=== PATIENT | female | born 1940 | race Caucasian/White ===

== ENCOUNTER 2017-09-25 10:40 | Day surgery (SDC) | payer MEDICARE, OTHER ==
[~2017-09-25] VITALS: Ht 167.6 cm; Wt 88.8 kg
[~2017-09-25 10:40] MED LIST: ASPI81CH; BIMA.03OPS OD; CHOL10002; DOCU100 PO; GLIP10; HYDACE5 PO; INSR10I SC; METF500 PO; PRAV20; Prinivil10 MG; TRULICITY0.75 MG/0.; VALACYCLOVIR1000 MG PO
[2017-09-25] MEDS ORDERED: TOUJEO SOL300 UNIT/1 (11:32)
== END 2017-09-25 13:14 | disposition home or self-care (01) ==
LOC: ORSCSDS 10:40
PROVIDERS: Internal Medicine Gastroenterology
PROC: 0DBL8ZX Excision of Transverse Colon, Via Natural or Artificial Opening Endoscopic, Diagnostic (ICD-10-PCS; principal; 2017-09-25 11:45)
PROC: 0DBM8ZX Excision of Descending Colon, Via Natural or Artificial Opening Endoscopic, Diagnostic (ICD-10-PCS; principal; 2017-09-25 11:45)
DX: Z12.11 Encounter for screening for malignant neoplasm of colon (principal); D12.3 Benign neoplasm of transverse colon; D12.4 Benign neoplasm of descending colon; K64.8 Other hemorrhoids; K57.30 Diverticulosis of large intestine without perforation or abscess without bleeding; Z86.010 Personal history of colon polyps; Z80.0 Family history of malignant neoplasm of digestive organs; E11.9 Type 2 diabetes mellitus without complications; G47.33 Obstructive sleep apnea (adult) (pediatric); Z79.82 Long term (current) use of aspirin; Z79.4 Long term (current) use of insulin; Z79.899 Other long term (current) drug therapy
CPT/HCPCS: 82947; 88305; J7120

== ENCOUNTER 2021-07-04 11:35 | Day surgery (SDC) | payer MEDICARE, OTHER ==
[~2021-07-04] VITALS: Ht 167.6 cm; Wt 81.9 kg
[~2021-07-04 11:35] MED LIST changes: +ACET500 PO; +ALBU8HFA2 INH; +ASPI81CH PO; +Alphagan P5 ML BOTHEYES; +CLEM1.34 PO; +DORZOLAMIDE 2%10 M3 BOTHEYES; +LUMIGAN2.5 ML BOTHEYES; +MELO7.5 PO; +NOVOLOG100 UNIT/3 SC; +PRAV20 PO; +Prinivil10 MG PO; +TIMO.25OPS BOTHEYES; +TIMO10T BOTHEYES; +TOUJEO MAX300 UNIT/2 SC; +TOUJEO SOL300 UNIT/1; +TRULICITY1.5 MG/0.1 SC; +VITAMIN D310 MC4 PO; +Voltaren100 GM TOP
--- NOTE | 2021-07-04 12:30 | NUR ---
Ambulatory in Day Surgery. Surgical site prepped with 2% Chlorhexidine cloth wipe. History, Chart, Medications and Allergies reviewed before start of procedure. Lungs clear T/O to Auscultation. Patient confirms NPO status and agrees with scheduled surgery. Pre-Op teaching done. Pt verbalizes understanding. Patient reports completing Chlorhexadine shower X2 prior to admission to hospital.
--- NOTE | 2021-07-04 18:44 | NUR ---
SHIFT SUMMARY PT STATUS POST FOR R TOTAL KNEE. AQUACEL DRESSING AND ZHANNA WRAP IN PLACE ON R LEG CDI. PT TRIED TO GET UP TO THE BSC AND WAS FOUND TO STILL BE A LITTLE NUMB FROM THE SPINAL. HOWEVER, PT WAS ABLE TO VOID. PT HAS SOME SENSATION IN HER LEGS BUT NO PAIN AT THIS TIME. VSS. WILL REPORT TO KIM CANTU.
--- NOTE | 2021-07-04 18:59 | NUR ---
SHIFT SUMMARY PT STATUS POST FOR R TOTAL KNEE. PT STILL NUMB FROM SPINAL AND NO C/O PAIN AT THIS TIME. AQUACEL DRESSING WITH ZHANNA WRAP IN PLACE AND CDI. PT HAD AN INSTANCE OF HYPOGLYCEMIA AFTER RETURNING FROM PACU. HER BLOOD GLUCOSE WAS 61. AFTER BEING GIVEN APPLE JUICE, ORANGE JUICE WITH A SUGAR PACKET, AND DINNER HER BLOOD GLUCOSE HAS COME UP TO 188. NO SYMPTOMS OF HYPOGLYCEMIA NOTED AT THE TIME OF EPISODE. VSS. PT IN BED WITH CALL LIGHT IN REACH. WILL REPORT TO KIM CANTU.
[2021-07-05 04:38] LABS: BASOPHILS ABSOLUTE AUTO 0.02 K/mm3 (0.00-0.23); BASOPHILS PERCENT AUTO 0 % (0-2); EOSINOPHILS ABSOLUTE AUTO 0.13 K/mm3 (0.00-0.68); EOSINOPHILS PERCENT AUTO 1 % (0-6); Hematocrit 32.3 % (33.0-51.0); Hemoglobin 10.7 g/dL (11.5-16.0); IMMATURE GRAN ABSOLUTE AUTO 0.04 K/mm3 (0.00-0.10); IMMATURE GRAN PERCENT AUTO 0 % (0-1); LYMPHOCYTES ABSOLUTE AUTO 1.71 K/mm3 (0.84-5.20); LYMPHOCYTES PERCENT AUTO 18 % (21-46); MONOCYTES ABSOLUTE AUTO 1.07 K/mm3 (0.16-1.47); MONOCYTES PERCENT AUTO 11 % (4-13); Mean Corpuscular HGB 31.2 pg (26.0-34.0); Mean Corpuscular HGB Conc 33.1 g/dL (31.5-36.5); Mean Corpuscular Volume 94 fL (80-100); NEUTROPHILS ABSOLUTE AUTO 6.62 K/mm3 (1.96-9.15); NEUTROPHILS PERCENT AUTO 69 % (41-73); Platelet Count 149 K/mm3 (150-400); RDW Coefficient Variation 13.2 % (11.7-14.2); RDW Standard Deviation 45.7 fL (35.1-46.3); Red Blood Cell Count 3.43 M/mm3 (3.80-5.20); White Blood Cell Count 9.59 K/mm3 (4.00-11.30)
[2021-07-05 05:35] LABS: Anion Gap 11 mmol/L (6-16); Blood Urea Nitrogen 25 mg/dL (8-24); Bun/Creatinine Ratio 31.8 (12.0-20.0); CO2, Blood 20 mmol/L (21-32); Chloride, Blood 105 mmol/L (98-108); Creatinine, Blood 0.79 mg/dL (0.40-1.00); Glomerular Filtration Rate >60 (60-); Glucose, Blood 189 mg/dL (70-99); Magnesium, Blood 1.7 mg/dL (1.6-2.4); Potassium, Blood 5.1 mmol/L (3.5-5.5); Sodium, Blood 136 mmol/L (136-145)
--- NOTE | 2021-07-05 07:22 | NUR ---
SHIFT SUMMARY POD 1 R TKA, A/O X4, VSS, TOLERATING PO, AMBULATING, VOIDING, PAIN WELL MANAGED, P/O ABX COMPLETE, NO ACUTE EVENTS THIS SHIFT. CALL LIGHT IN REACH, WILL CTM AND REPORT TO DAY RN.
[2021-07-05] MEDS ORDERED: OXYC5 PO (08:42)
[2021-07-05] MEDS ORDERED: SULTRIDS PO (08:43)
--- NOTE | 2021-07-05 14:16 | NUR ---
DISCHARGE PATIENT DISCHARGED IN STABLE CONDITION, PERIPHERAL IV REMOVED. PATIENT VERBALIZED UNDERSTANDING OF DISCHARGE INSTRUCTIONS ALL BELONGINGS PACKED AND SENT WITH PATIENT. PATIENT TAKEN TO FRONT LOBBY VIA WHEELCHAIR WITH ASSISTANCE FROM KEV
--- NOTE | 2021-07-06 14:32 | NUR ---
07/06/21 1432 Papst,Mychal D VERIFICATION CORRECT IMPLANT INFORMATION
== END 2021-07-05 14:00 | disposition home or self-care (01) ==
LOC: ORSCMMR 11:35 → ORD 13:00 → SURS 16:48 → ORSCMMR 07-05 14:00
PROVIDERS: Orthopaedic Surgery
PROC: 8E0YXBZ Computer Assisted Procedure of Lower Extremity (ICD-10-PCS; principal; 2021-07-04 13:00)
PROC: 0SRC0J9 Replacement of Right Knee Joint with Synthetic Substitute, Cemented, Open Approach (ICD-10-PCS; principal; 2021-07-04 13:00)
DX: M17.11 Unilateral primary osteoarthritis, right knee (principal); Z86.73 Personal history of transient ischemic attack (TIA), and cerebral infarction without residual deficits; E11.9 Type 2 diabetes mellitus without complications; Z79.84 Long term (current) use of oral hypoglycemic drugs; Z79.899 Other long term (current) drug therapy; I10 Essential (primary) hypertension; E78.5 Hyperlipidemia, unspecified; G47.33 Obstructive sleep apnea (adult) (pediatric)
CPT/HCPCS: 36415; 73560-RT; 80048; 82947; 83735; 85025; 94762; 97110; 97116; 97161; 97530; A9270; C1713; C1776; J0171; J0690; J0735; J1815; J1885; J2704; J2795; J3010; J7120

== ENCOUNTER 2022-05-24 11:29 | Day surgery (SDC) | payer MEDICARE, OTHER ==
[~2022-05-24] VITALS: Ht 165.1 cm; Wt 78.3 kg
[~2022-05-24 11:29] MED LIST changes: +OXYC5 PO; +SULTRIDS PO
[2022-05-24] MEDS ORDERED: TRULICITY0.75 MG/01 (12:12)
== END 2022-05-24 15:43 | disposition home or self-care (01) ==
LOC: ORSCSDS 11:29
PROVIDERS: Internal Medicine Gastroenterology
PROC: 0DBH8ZX Excision of Cecum, Via Natural or Artificial Opening Endoscopic, Diagnostic (ICD-10-PCS; principal; 2022-05-24 12:45)
DX: Z12.11 Encounter for screening for malignant neoplasm of colon (principal); Z86.010 Personal history of colon polyps; Z80.0 Family history of malignant neoplasm of digestive organs; G47.33 Obstructive sleep apnea (adult) (pediatric); E11.9 Type 2 diabetes mellitus without complications; D12.0 Benign neoplasm of cecum; K57.50 Diverticulosis of both small and large intestine without perforation or abscess without bleeding; J44.9 Chronic obstructive pulmonary disease, unspecified; I10 Essential (primary) hypertension; E78.5 Hyperlipidemia, unspecified; G47.30 Sleep apnea, unspecified; E66.9 Obesity, unspecified; Z68.33 Body mass index [BMI] 33.0-33.9, adult; Z79.82 Long term (current) use of aspirin; Z79.4 Long term (current) use of insulin; Z79.85 Long-term (current) use of injectable non-insulin antidiabetic drugs; Z79.84 Long term (current) use of oral hypoglycemic drugs; Z79.899 Other long term (current) drug therapy
CPT/HCPCS: 82947; 88305; J2704; J7120

== ENCOUNTER 2023-01-04 10:27 | Emergency (ER) | payer MEDICARE, OTHER ==
[~2023-01-04] VITALS: Ht 165.1 cm; Wt 81.7 kg
[~2023-01-04 10:27] MED LIST changes: +TRULICITY0.75 MG/01
[2023-01-04 10:33] VITALS: BP 156/87
== END 2023-01-04 11:21 | disposition home or self-care (01) ==
LOC: ER 10:27
DX: S51.012A Laceration without foreign body of left elbow, initial encounter (principal); E11.9 Type 2 diabetes mellitus without complications; Z23 Encounter for immunization; Z79.82 Long term (current) use of aspirin; Z79.4 Long term (current) use of insulin; Z79.84 Long term (current) use of oral hypoglycemic drugs; W18.30XA Fall on same level, unspecified, initial encounter
CPT/HCPCS: 90714

== ENCOUNTER → 2023-09-18 | Outpatient (CLI) | payer MEDICARE, OTHER ==
[2023-09-18 17:15] LABS: Adenovirus F 40/41 Not Detected (NOT DETECT); Astrovirus Not Detected (NOT DETECT); Campylobacter Sp Not Detected (NOT DETECT); Cryptosporidium Not Detected (NOT DETECT); Cyclospora Cayetanensis Not Detected (NOT DETECT); E. Coli O157 Not Detected (NOT DETECT); Entamoeba Histolytica Not Detected (NOT DETECT); Enteroaggregative E. coli-EAEC Not Detected (NOT DETECT); Enteropathogenic E. coli-EPEC Not Detected (NOT DETECT); Enterotoxigenic E. coli-ETEC Not Detected (NOT DETECT); Giardia Lamblia Not Detected (NOT DETECT); Norovirus GI/GII Not Detected (NOT DETECT); Plesiomonas Shigelloides Not Detected (NOT DETECT); Rotavirus A Not Detected (NOT DETECT); Salmonella Sp Not Detected (NOT DETECT); Sapovirus Not Detected (NOT DETECT); Shiga Toxin-prod E. coli-STEC Not Detected (NOT DETECT); Shigella/Enteroin E. coli-EIEC Not Detected (NOT DETECT); Vibrio Cholerae Not Detected (NOT DETECT); Vibrio Sp Not Detected (NOT DETECT); Yersinia Enterocolitica Not Detected (NOT DETECT)
[2023-09-19 11:55] LABS: Stool Occult Bld Immuno 1 Positive (NEGATIVE)
== END ==
LOC: LAB SHORT 12:46 → LAB 12:46
PROVIDERS: Family Medicine
DX: R19.7 Diarrhea, unspecified (principal)
CPT/HCPCS: 82274; 87507

== ENCOUNTER → 2023-12-05 | Outpatient (CLI) | payer MEDICARE, OTHER | END | disposition home or self-care (01) | LOC: LAB 13:52 → LAB SHORT 13:52 | DX: R19.7 Diarrhea, unspecified (principal) ==

== ENCOUNTER 2024-01-19 16:57 | Inpatient (IN) | payer MEDICARE, OTHER ==
[~2024-01-19] VITALS: Ht 165.1 cm; Wt 69.5 kg
[~2024-01-19 16:57] MED LIST changes: +ALDACTONE100 MG PO; -CLEM1.34 PO; +FURO40 PO; -PRAV20 PO; +PRAVASTATIN SOD40 MG PO; +[UNRECOGNIZED DRUG - OTHER] PO
[2024-01-19 18:33] LABS: BASOPHILS ABSOLUTE AUTO 0.04 K/mm3 (0.00-0.23); BASOPHILS PERCENT AUTO 1 % (0-2); EOSINOPHILS ABSOLUTE AUTO 0.34 K/mm3 (0.00-0.68); EOSINOPHILS PERCENT AUTO 4 % (0-6); Hematocrit 30.2 % (33.0-51.0); Hemoglobin 10.1 g/dL (11.5-16.0); IMMATURE GRAN ABSOLUTE AUTO 0.03 K/mm3 (0.00-0.10); IMMATURE GRAN PERCENT AUTO 0 % (0-1); LYMPHOCYTES PERCENT AUTO 31 % (21-46); MONOCYTES ABSOLUTE AUTO 0.75 K/mm3 (0.16-1.47); MONOCYTES PERCENT AUTO 9 % (4-13); Mean Corpuscular HGB 32.1 pg (26.0-34.0); Mean Corpuscular HGB Conc 33.4 g/dL (31.5-36.5); Mean Corpuscular Volume 96 fL (80-100); Mean Platelet Volume 11.5 fL (9.1-12.4); NEUTROPHILS ABSOLUTE AUTO 4.34 K/mm3 (1.96-9.15); NEUTROPHILS PERCENT AUTO 54 % (41-73); Platelet Count 116 K/mm3 (150-400); RDW Coefficient Variation 13.9 % (11.7-14.2); RDW Standard Deviation 49.1 fL (35.1-46.3); Red Blood Cell Count 3.15 M/mm3 (3.80-5.20)
[2024-01-19 18:48] LABS: Albumin, Blood 3.1 g/dL (3.4-5.0); Bilirubin, Total 1.2 mg/dL (0.1-1.0); Bun/Creatinine Ratio 23.1 (12.0-20.0); Calcium, Blood 9.4 mg/dL (8.5-10.1); Creatinine, Blood 2.38 mg/dL (0.40-1.00); Globulin, Blood 3.1 g/dL (2.2-4.0); Potassium, Blood 6.4 mmol/L (3.5-5.5); Total Protein, Blood 6.2 g/dL (6.4-8.2)
[2024-01-19] MEDS ORDERED: Calcium Gluconate 10% 100 MG/ML INJ IV ONE (21:05)
[2024-01-19] MEDS ORDERED: NS 1,000 ML IV SCH ×2 (21:05→21:25)
[2024-01-19] MEDS ORDERED: Sodium Zirconium Cyclosilicate 10 GM Packet PO ONE (21:10)
[2024-01-19] MEDS ORDERED: Dextrose 50% 50 ML Syringe IV ONE (21:10)
[2024-01-19] MEDS ORDERED: Insulin Regular 100 Unit/ML 1ML Dose IV ONE ×2 (21:10→21:25)
[2024-01-19] MEDS ORDERED: Sodium Bicarb 8.4% 1 MEQ/ML 50 ML Vial IV ONE ×2 (21:10→21:25)
[2024-01-19] MEDS ORDERED: Ondansetron HCl 2 MG / ML 2ML Vial IV PRN (21:25)
[2024-01-19] MEDS ORDERED: Dextrose 50% 50 ML Vial IV ONE (21:25)
[2024-01-19] MEDS ORDERED: Dextrose 5% 500 ML IV ONE (21:35)
[2024-01-19] MEDS ORDERED: NS 500 ML IV ONE (22:00)
[2024-01-19 22:56] VITALS: BP 109/82
[2024-01-19 23:34] VITALS: BP 123/65
--- NOTE | 2024-01-19 23:52 | NUR ---
ARRIVAL TO PCU: PT ARRIVED TO PCU FROM ER AT APPROX 2215. SHE AMBULATES WITHOUT DIFFICULTY WITH SBA. SHE IS A/OX4 BUT UNABLE TO CONFIRM HOME MEDS. SON TO BRING IN HOME MEDS IN THE MORNING FOR MED REC. SHE USES THE CALL LIGHT APPROPRIATLY AND IS ABLE TO MAKE HER NEEDS KNOWN. SHE IS ON TELE IN NSR, DENIES CHEST PAIN/PRESSURE. SHE IS ON RA WITH SPO2>90%, DENIES SOB. ABD IS NONTENDER, SOFT, BT IN ALL 4QUADS. SHE IS CONT OF VOIDS. HER SKIN IS FREE FROM ANY PRESSURE INJURIES AND RASHES. CALL LIGHT IN REACH, WILL CONTINUE TO MONITOR AND PROVIDE CARE
[2024-01-20] VITALS (18 sets, daily range): BP systolic 10–127; BP diastolic 40–60
[2024-01-20 00:36] LABS: Bun/Creatinine Ratio 26.5 (12.0-20.0); Calcium, Blood 9.5 mg/dL (8.5-10.1); Creatinine, Blood 1.96 mg/dL (0.40-1.00)
[2024-01-20 00:56] LABS: Source, Urine Clean Catch
[2024-01-20 01:20] LABS: Bilirubin, Urine Neg (Neg); Blood, Urine Neg (Neg); Glucose Qualitative, Urine Neg (Neg); Ketones, Urine Neg (Neg); Leukocyte Esterase, Urine 1+ (Neg); Nitrite, Urine Neg (Neg); Protein, Urine Neg (Neg); Urobilinogen, Urine NORM (Normal); pH, Urine 6.5 (5.0-8.0)
[2024-01-20 01:30] LABS: Appearance, Urine Clear (Clear); Color, Urine Yellow (P-Yellow)
[2024-01-20 01:31] LABS: Bacteria Rare /hpf; Red Blood Cells, Urine Not Seen /hpf (0-2); Squamous Epithelial Cells Few /hpf (Few)
--- NOTE | 2024-01-20 04:33 | NUR ---
END OF SHIFT NOTE: NO ACUTE CHANGES T/O SHIFT. SEE PREVIOUS NOTE
[2024-01-20 04:41] LABS: Bun/Creatinine Ratio 27.7 (12.0-20.0); Calcium, Blood 9.4 mg/dL (8.5-10.1); Creatinine, Blood 1.88 mg/dL (0.40-1.00); Potassium, Blood 5.5 mmol/L (3.5-5.5)
--- NOTE | 2024-01-20 07:15 | NUR ---
ASSUMPTION OF CARE: ASSUMED CARE OF PT AT 0700 AFTER REPORT FROM NOC RN. UPON INITAL ASSESSMENT, PT STABLE AND REPSONSIVE TO THIS RN UPON ENTERING ROOM. SHE IS AXO X 4 WITH NO NEURO DEFICITS. CALM AND COOPERATIVE WITH STAFF. SHE HAS NS RUNNING AT 125ML/HR. SHE HAS EQUAL AND CLEAR LUNG SOUNDS. DENIES SOB. O2 96% ON RA, DENIES C/P OR PRESSURE. B/P STABLE. NSR AT 70BPM. DENIES ABDOMINAL PAIN, NO DISTENTION. SHE IS AMBULATORY IN ROOM WITH ASSISTANCE OF HER CANE. POWERGLIDE TO CHAITANYA DRAWS AND FLUSHES WELL. SHE CURRENTLY DENIES ANY NEEDS, CALL LIGHT IN REACH AND ALL VSS.
[2024-01-20] MEDS ORDERED: Insulin Human Lispro 100 Units/ML 3ML Syringe SC SCH ×2 (07:30)
[2024-01-20 07:55] LABS: International Normalized Ratio 1.13
[2024-01-20] MEDS ORDERED: Insulin Glargine-Yfgn 100 Unit/mL 3 ML SYR SC SCH ×3 (09:00)
--- NOTE | 2024-01-20 14:11 | NUR ---
ASSUMED CARE OF PT WHILE PRIMARY RN TO MEAL BREAK. PT SLEEPING IN BED. DENIES NEEDS. CALL LIGHT IN REACH AND VSS.
[2024-01-20] MEDS ORDERED: Lactated Ringer's 1,000 ML IV SCH ×3 (15:30→20:30)
[2024-01-20 16:13] LABS: Bun/Creatinine Ratio 25.4 (12.0-20.0); Calcium, Blood 8.5 mg/dL (8.5-10.1); Creatinine, Blood 2.01 mg/dL (0.40-1.00)
[2024-01-20] MEDS ORDERED: Dextrose 50% 50 ML Vial IV ONE (16:40)
[2024-01-20] MEDS ORDERED: Insulin Regular 100 Unit/ML 1ML Dose IV ONE (16:40)
[2024-01-20] MEDS ORDERED: Insulin Regular 100 UNIT/ML 10ML Vial IV ONE (17:45)
[2024-01-20] MEDS ORDERED: ALDACTONE100 MG PO (17:58)
[2024-01-20] MEDS ORDERED: FUROSEMIDE40 MG PO (17:58)
[2024-01-20] MEDS ORDERED: FOSAMAX70 MG PO (17:58)
[2024-01-20] MEDS ORDERED: ALBU90OI INH (17:59)
[2024-01-20] MEDS ORDERED: Heparin Sodium,Porcine 5,000 UNIT/0.5 ML SDV SC SCH (18:00)
[2024-01-20] MEDS ORDERED: TOUJEO SOL300 UNIT/2 SC (18:02)
[2024-01-20] MEDS ORDERED: Lactated Ringer's 1,000 ML IV ONE (18:15)
--- NOTE | 2024-01-20 18:48 | NUR ---
ASSUME CARE AT 1230 FROM TIMUR CANTU. PT HAS NO REPORTED ISSUES SINCE THIS RN TOOK OVER CARE FOR PT, PT DENIES ANY CHEST PAIN,SOB/, PALPITAITONS, HAS SOME MILD DIZZINESS UPON CHANGING POSITIONS IN BED, WHEN THIS RN CHECKED VITALS AT 3PM SBP WAS LOW 60-70'S MAP ON THE 50'S, HRR SR 70'S, SATS ABOVE 95% ON RA, AFEBRILE. MADE AWARE ORDER TO REPEAT BMP AND 1LR BAG TO RUN AT 200MLS/HR. AFTER AN HOUR NO IMPROVEMENT ON BP'S ORDER RECEIVED TO RUN LR BAG A BOLUS THEN ANOTHER LR BAG AFTER TO RUN AT 125MLS/HR X1 BAG, BMP RESULT CAME BACK WITH POTASSIUM OF 6.0, MD MADE AWARE ORDER RECEIVED FOR D5O SYRINGE FOLLOWED BY 10U OF HUMULIN IV. REPEAT BMP AT 1930. PT ATE DINNER WITH NO ISSUES BP NOW IMPROVED SBP 90-100'S, MAP >60'S. PT IN BED RESTING WITH CALL LIGHTS IN REACH CALLS APPROPRIATELY
[2024-01-20 20:21] LABS: Calcium, Blood 8.8 mg/dL (8.5-10.1); Creatinine, Blood 1.74 mg/dL (0.40-1.00); Potassium, Blood 5.2 mmol/L (3.5-5.5)
[2024-01-21] VITALS (9 sets, daily range): BP systolic 98–130; BP diastolic 46–108
[2024-01-21 04:18] LABS: Bun/Creatinine Ratio 28.3 (12.0-20.0); Calcium, Blood 8.5 mg/dL (8.5-10.1); Creatinine, Blood 1.59 mg/dL (0.40-1.00); Potassium, Blood 5.2 mmol/L (3.5-5.5)
--- NOTE | 2024-01-21 06:31 | NUR ---
SHIFT SUMMARY PATIENT ALERT AND ORIENTED x4, PLEASANT, COOPERATIVE WITH CARES, CALL LIGHT APPROPRIATE. HYPOTENSION NOTED, MAPS > 60, ASYMPTOMATIC. OTHERWISE, HEMODYNAMICALLY STABLE. PATIENT ABLE TO AMBULATE TO RESTROOM WITH CANE WHICH SHE USES AT BASELINE, NURSE SBA FOR SAFETY AND FALL PREVENTION. PATIENT ON RA, SPO2 > 90%, DENIES DYSPNEA, BREATHING UNLABORED, EVEN CHEST RISE AND FALL WHILE RESTING OVERNIGHT. HOME CPAP WORN OVERNIGHT. NO ACUTE EVENTS OVERNIGHT.
[2024-01-21] MEDS ORDERED: Insulin Glargine-Yfgn 100 Unit/mL 3 ML SYR SC SCH (09:00)
--- NOTE | 2024-01-21 10:43 | NUR ---
AM NOTES; NO ACUTE CHANGE THIS MORNING, BP HAS IMPROVED STILL IN THE SOFT SIDE. 90-110'S MAP >60'S, CBG WAS 59 THIS MORNING WAS RECHECKED AN HOUR AFTER EATING BREAKFAST CBG WAS UP TO 158. PT DENIES DIZZINESS THIS MORNING. PT HAS BEEN AMBULATING TO THE BATHROOM SBA. PT NOW CURRENTLY WORKING WITH PHYSICAL THERAPIST. NO ISSUES WITH BREAKFATS AND MEDS THIS MORNING. PT DENIES CHEST/SOB/PALPITATIONS. CALLS APPROPRIATELY. PLEASANT AND COOPERATIVE WITH CARES. WILL CONTINUE TO MONITOR
--- NOTE | 2024-01-21 12:50 | NUR ---
THIS RN ASSUMED CARE OF PT AT THIS TIME.
[2024-01-21 14:38] LABS: Creatinine, Blood 1.45 mg/dL (0.40-1.00); Potassium, Blood 5.9 mmol/L (3.5-5.5)
[2024-01-21] MEDS ORDERED: Albuterol HFA200 ACT/6.7 GM INH INH PRN (15:35)
[2024-01-21] MEDS ORDERED: Lactated Ringer's 1,000 ML IV SCH (15:50)
[2024-01-21] MEDS ORDERED: Insulin Regular 100 UNIT/ML 10ML Vial IV ONE (16:00)
--- NOTE | 2024-01-21 16:33 | NUR ---
TRANSFER TO MEDICAL: REPORT TO TANYA CANTU. PT WHEELED TO ROOM 336 BY STAFF. VSS. ALL PERSONAL BELONGINGS GATHERED AND TRANSFERRED WITH PATIENT.
--- NOTE | 2024-01-21 16:54 | NUR ---
TRANSFER TO ROOM 336 PT ORIENTED TO ROOM. CALL LIGHT IN REACH. WATER PROVIDED. 2 RN SKIN CHECK COMPLETED WITH HARVINDER James RN. PT DENIES PAIN. BREATHING EASY & UNLABORED. NO CHANGES IN ASSESSMENT FROM PRIOR ASSESSMENT. LR STARTED RUNNING 150 ML/HR. BLOOD SUGAR CHECKED & HEPARIN/INSULIN GIVEN. PT DENIES OTHER NEEDS AT THIS TIME. VS REVIEWED. CALL LIGHT IN REACH.
[2024-01-21] MEDS ORDERED: Brimonidine Tartrate 0.2% Opth 5 ml BOTHEYES SCH (21:00)
[2024-01-21] MEDS ORDERED: Timolol 0.25% Opth Soln 5 ml BOTHEYES SCH (21:00)
[2024-01-21] MEDS ORDERED: Dorzolamide 2% Opth Soln BOTHEYES SCH (21:00)
[2024-01-21] MEDS ORDERED: NS 250 ML IV PRN (23:35)
[2024-01-22 03:06] VITALS: BP 100/45
--- NOTE | 2024-01-22 03:18 | NUR ---
SHIFT SUMMARY PT. DENIES PAIN, SOB, ANY DISCOMFORT ON THIS SHIFT. PT. WEARING CPAP DURING THE NIGHT, 02 100%. TELE: SINUS@70. NO ACUTE DISTRESS/EVENTS NOTED/REPORTED DURING THIS SHIFT. BED AT LOWEST POSITION, CALL LIGHT IN REACH. WILL HANDOFF TO THE INCOMING SHIFT NURSE.
[2024-01-22 06:49] LABS: Bun/Creatinine Ratio 26.8 (12.0-20.0); Calcium, Blood 8.6 mg/dL (8.5-10.1); Creatinine, Blood 1.42 mg/dL (0.40-1.00); Potassium, Blood 5.6 mmol/L (3.5-5.5)
[2024-01-22 07:10] VITALS: BP 105/77
[2024-01-22] MEDS ORDERED: Lisinopril 10 MG Tab PO SCH (09:00)
[2024-01-22 15:13] VITALS: BP 104/41
--- NOTE | 2024-01-22 15:29 | NUR ---
SHIFT SUMMARY PT AWAKE DURING SHIFT REPORT, SITTING UP IN BED WATCHING TV. PT IS VERY PLEASANT AND CO-OP WITH CARE. PT ADMITTED FOR ACUTE KIDNEY FAILURE; IMPROVING SLOWLY. UP TO SHOWER WITH O/T TODAY. DR HUSTON IN TO SEE PT THIS AM. PT'S SON IN TO VISIT LATER. PT REPORTING THAT SHE LIVES WITH HER SON WHO ASSISTS HER AT HOME. NO C/O. DENIED FURTHER NEEDS. CALL LT IN REACH.
[2024-01-22 17:07] LABS: Bun/Creatinine Ratio 24.2 (12.0-20.0); Calcium, Blood 8.4 mg/dL (8.5-10.1); Creatinine, Blood 1.53 mg/dL (0.40-1.00); Potassium, Blood 5.8 mmol/L (3.5-5.5)
[2024-01-22 20:13] VITALS: BP 116/58
[2024-01-23 04:03] VITALS: BP 126/53
--- NOTE | 2024-01-23 04:53 | NUR ---
SHIFT SUMMARY NO ACUTE EVENTS DURING THIS SHIFT. PT. DENIES PAIN OR DISCOMFORT, SOB AND CHESTPAIN. HS B, TELE: SINUS@64. PT. IS AWAITING TO D/C TODAY. PT. USES HER OWN CPAP DURING THE NIGHT. BED AT THE LOWEST POSITION, CALL LIGHT IN REACH. WILL HAND OFF TO THE INCOMING SHIFT NURSE.
[2024-01-23 06:53] LABS: Bun/Creatinine Ratio 29.7 (12.0-20.0); Calcium, Blood 8.7 mg/dL (8.5-10.1); Creatinine, Blood 1.18 mg/dL (0.40-1.00); Potassium, Blood 5.3 mmol/L (3.5-5.5)
[2024-01-23 07:37] VITALS: BP 94/56
[2024-01-23 12:52] LABS: Bun/Creatinine Ratio 29.2 (12.0-20.0); Calcium, Blood 8.7 mg/dL (8.5-10.1); Creatinine, Blood 1.13 mg/dL (0.40-1.00); Potassium, Blood 5.7 mmol/L (3.5-5.5)
[2024-01-23] MEDS ORDERED: Furosemide 40 MG Tab PO ONE (13:15)
[2024-01-23 13:29] VITALS: BP 98/51
[2024-01-23 14:55] VITALS: BP 117/59
[2024-01-23] MEDS ORDERED: Sodium Zirconium Cyclosilicate 10 GM Packet PO SCH (16:00)
--- NOTE | 2024-01-23 18:44 | NUR ---
SHIFT SUMMARY PATIENT AOX4 UP AD MADDIE TO BATHROOM. SHE HAS NO ACUTE EVENTS DURING SHIFT. PATIENT ASYMPTOMATIC DESPITE HIGH POTASSIUM TODAY. BED IN LOW POSITIN, CALL LIGHT IN REACH. SHE IS ABLE TO MAKE NEEDS KNOWN.
[2024-01-23 19:13] VITALS: BP 107/51
--- NOTE | 2024-01-24 04:07 | NUR ---
SHIFT SUMMARY PT WAS A/O X4 ON ASSESSMENT. PT STATES THAT SHE FEEL FINE AND IS ONLY HERE D/T LAB VALUES. NO NEW COMPLAINTS, NO CHANGES TO CONDITION. PT RESTING IN BED AT LOW POSITION WITH CALL LIGHT IN REACH.
[2024-01-24 05:18] VITALS: BP 103/60
[2024-01-24 06:17] LABS: Bun/Creatinine Ratio 28.6 (12.0-20.0); Calcium, Blood 8.6 mg/dL (8.5-10.1); Creatinine, Blood 1.12 mg/dL (0.40-1.00); Potassium, Blood 4.7 mmol/L (3.5-5.5)
[2024-01-24 07:40] VITALS: BP 109/64
== END 2024-01-24 12:40 | disposition home or self-care (01) | DRG 684 ==
LOC: ER 16:57 → PCU 21:23 → ER 22:19 → PCU 22:25 → MEDS 01-21 16:39 → ENPENDDIS 01-23 11:09 → MEDS 01-24 12:40
PROVIDERS: Family Medicine; Hospitalist; Nurse Practitioner Acute Care; Student in an Organized Health Care Education/Training Program; ADMIT Internal Medicine
PROC: 5A09357 Assistance with Respiratory Ventilation, Less than 24 Consecutive Hours, Continuous Positive Airway Pressure (ICD-10-PCS; principal; 2024-01-19)
DX: N17.9 Acute kidney failure, unspecified (principal); E87.5 Hyperkalemia; E78.5 Hyperlipidemia, unspecified; N18.9 Chronic kidney disease, unspecified; E86.9 Volume depletion, unspecified; E11.22 Type 2 diabetes mellitus with diabetic chronic kidney disease; I12.9 Hypertensive chronic kidney disease with stage 1 through stage 4 chronic kidney disease, or unspecified chronic kidney disease; K74.60 Unspecified cirrhosis of liver; K75.81 Nonalcoholic steatohepatitis (NASH); Z79.899 Other long term (current) drug therapy; Z79.84 Long term (current) use of oral hypoglycemic drugs; Z79.82 Long term (current) use of aspirin; Z79.4 Long term (current) use of insulin; Z98.51 Tubal ligation status; Z98.890 Other specified postprocedural states
CPT/HCPCS: 80048; 80053; 81001; 82947; 84132; 85025; 85610; 93005; 93010; 94760; 94762; 97116; 97162; 97165; 99285-25; A9270; J0612; J1644; J1815; J7030; J7040; J7060; J7120; J7799

== ENCOUNTER → 2024-04-05 | Outpatient (CLI) | payer MEDICARE, OTHER ==
[~2024-04-05] MED LIST changes: +ALBU90OI INH; +FOSAMAX70 MG PO; +FUROSEMIDE40 MG PO; +TOUJEO SOL300 UNIT/2 SC
[2024-04-05 14:23] LABS: Protein, Urine Quantitative <5.0 mg/dL (0.0-11.9)
== END ==
LOC: LAB 11:20 → LAB SHORT 11:20
PROVIDERS: Internal Medicine Nephrology
DX: N18.30 Chronic kidney disease, stage 3 unspecified (principal); D63.1 Anemia in chronic kidney disease; R76.9 Abnormal immunological finding in serum, unspecified; R94.5 Abnormal results of liver function studies; R94.6 Abnormal results of thyroid function studies; D51.8 Other vitamin B12 deficiency anemias; D52.8 Other folate deficiency anemias; D50.9 Iron deficiency anemia, unspecified; E11.21 Type 2 diabetes mellitus with diabetic nephropathy; N25.81 Secondary hyperparathyroidism of renal origin; E55.9 Vitamin D deficiency, unspecified; E78.00 Pure hypercholesterolemia, unspecified
CPT/HCPCS: 81050; 82043; 82570; 84156

== ENCOUNTER 2024-05-16 09:19 | Inpatient (IN) | payer MEDICARE, OTHER ==
[~2024-05-16] VITALS: Ht 165.1 cm; Wt 79.7 kg
[2024-05-16] VITALS (18 sets, daily range): BP systolic 76–105; BP diastolic 36–62
[2024-05-16] MEDS ORDERED: CefTRIAXone Sodium 1,000 MG in NS 50 ML IV ONE (09:45)
[2024-05-16] MEDS ORDERED: Pantoprazole Sodium 40 MG in NS 50 ML IV SCH (09:45)
[2024-05-16] MEDS ORDERED: Octreotide Acetate 500 MCG in NS 250 ML IV SCH (09:45)
[2024-05-16] MEDS ORDERED: Pantoprazole Sodium 40 MG Injection IV ONE (09:45)
[2024-05-16] MEDS ORDERED: Octreotide Acetate 50 MCG in NS 50 ML IV ONE (09:45)
[2024-05-16 09:50] LABS: BASOPHILS ABSOLUTE AUTO 0.08 K/mm3 (0.00-0.23); BASOPHILS PERCENT AUTO 0 % (0-2); EOSINOPHILS ABSOLUTE AUTO 0.02 K/mm3 (0.00-0.68); EOSINOPHILS PERCENT AUTO 0 % (0-6); Hematocrit 37.4 % (33.0-51.0); Hemoglobin 12.8 g/dL (11.5-16.0); IMMATURE GRAN ABSOLUTE AUTO 0.25 K/mm3 (0.00-0.10); IMMATURE GRAN PERCENT AUTO 1 % (0-1); LYMPHOCYTES ABSOLUTE AUTO 2.89 K/mm3 (0.84-5.20); LYMPHOCYTES PERCENT AUTO 11 % (21-46); MONOCYTES ABSOLUTE AUTO 2.33 K/mm3 (0.16-1.47); MONOCYTES PERCENT AUTO 9 % (4-13); Mean Corpuscular HGB 30.2 pg (26.0-34.0); Mean Corpuscular HGB Conc 34.2 g/dL (31.5-36.5); Mean Corpuscular Volume 88 fL (80-100); Mean Platelet Volume 10.5 fL (9.1-12.4); NEUTROPHILS ABSOLUTE AUTO 20.65 K/mm3 (1.96-9.15); NEUTROPHILS PERCENT AUTO 79 % (41-73); Platelet Count 189 K/mm3 (150-400); RDW Coefficient Variation 18.3 % (11.7-14.2); RDW Standard Deviation 58.4 fL (35.1-46.3); Red Blood Cell Count 4.24 M/mm3 (3.80-5.20); White Blood Cell Count 26.22 K/mm3 (4.00-11.30)
[2024-05-16 09:56] LABS: Calcium, Ionized (POC) 1.09 mmol/L (1.10-1.46); Chloride (POC) 102 mmol/L (98-108); Glucose (ISTAT POC) 159 mg/dL (70-99); Hemoglobin (POC) 12.6 g/dL (12.0-16.0); Potassium (POC) 3.4 mmol/L (3.5-5.5); Sodium (POC) 135 mmol/L (135-148); Total CO2 (POC) 16 mmol/L (21-32)
[2024-05-16 10:04] LABS: Albumin/Globulin Ratio 0.6 (0.8-1.8); Bilirubin, Total 3.5 mg/dL (0.1-1.0); Bun/Creatinine Ratio 33.1 (12.0-20.0); Calcium, Blood 8.1 mg/dL (8.5-10.1); Creatinine, Blood 1.75 mg/dL (0.40-1.00); Globulin, Blood 3.4 g/dL (2.2-4.0); Magnesium, Blood 1.8 mg/dL (1.6-2.4); Potassium, Blood 3.6 mmol/L (3.5-5.5); Total Protein, Blood 5.4 g/dL (6.4-8.2)
[2024-05-16 10:12] LABS: International Normalized Ratio 1.41; Prothrombin Time Results 14.7 Sec (9.7-11.5)
[2024-05-16] MEDS ORDERED: NS 1,000 ML IV SCH ×5 (10:50→19:45)
[2024-05-16] MEDS ORDERED: FLU VACC TS2024-25(6MOS UP)/PF 45 MCG/0.5 ML SYRINGE IM ONE (11:00)
[2024-05-16 15:08] LABS: Hematocrit 32.4 % (33.0-51.0); Hemoglobin 10.8 g/dL (11.5-16.0)
[2024-05-16] MEDS ORDERED: BUME2 PO (17:18)
[2024-05-16] MEDS ORDERED: POTCIT10 PO (17:21)
--- NOTE | 2024-05-16 17:29 | NUR ---
END OF SHIFT SUMMARY: PT A&OX4 AND ACTIVE IN HER CARE. SATTING >92% ON ROOM AIR, ON TELE SHOWING SINUS WITH RATE IN 80'S. NO EPISODES OF BLOODY EMESIS SINCE ARRIVAL. DENIED SOB, SOFT BLOOD PRESSURES. TO BEDSIDE AND AWAITING AN OPEN SLOT FOR A SCOPE TONIGHT AROUND 18:00. A PARACENTESIS IS SCHEDULED FOR TOMORROW MORNING AND PATIENT IS TO BE NPO FOR BREAKFAST. ADDRESSED TO ABOUT A SOFT BLOOD PRESSURE CURRENTLY AT 90'S SBP AND MAP MAINTAING >65. STATED IF BLOOD PRESSURE IS MAINTING <80 SBP TO CONSIDER TRANSFERRING TO ICU FOR PRESSORS. LR RUNNING AT 150MLS/HR. PROTONIX AND SANDOSTATIN DRIPS RUNNING WELL. POWERGLIDE WAS PLACED IN THE RIGHT UPPER ARM. POTASSIUM WAS ADDRESSED AND WANTS LABS IN AM AND HEMOGLOBIN IS ORDERED Q4 TO TREND. WILL REPORT TO ONCOMING ENGINEERING SURVEYOR RN.
[2024-05-16] MEDS ORDERED: Insulin Regular 100 UNIT/ML 10ML Vial SC SCH (18:00)
[2024-05-16] MEDS ORDERED: Lactated Ringer's 1,000 ML IV SCH (18:20)
--- NOTE | 2024-05-16 18:50 | NUR ---
FLUSHED RAC IV SITE WITH 10NS/PATENT.
--- NOTE | 2024-05-16 19:24 | NUR ---
05/16/241923 Jose Mckinley History, Chart, Medications and Allergies reviewed before start of procedure. MONITOR INTACT WITH CONTINUOUS PULSE OXIMETRY, CONTINUOUS END TITAL CO2, AND INTERMITTENT BLOOD PRESSURE.3-LEAD EKG REVIEWED WITH PHYSICIAN PRIOR TO START OF PROCEDURE.O2 VIA POM INTACT THROUGHOUT SEDATION/PROCEDURE.See Anesthesia record.
[2024-05-16] MEDS ORDERED: propofoL 60 ML IV ONE (19:25)
[2024-05-16] MEDS ORDERED: Metoclopramide HCl 5MG / ML 2ML Vial IV ONE (19:55)
[2024-05-16] MEDS ORDERED: Sugammadex Sodium 200 MG/2ML SDV (100 MG/ML) ONE (20:18)
[2024-05-16 21:01] LABS: Hemoglobin 10.2 g/dL (11.5-16.0)
[2024-05-16] MEDS ORDERED: Sodium Chloride 0.45% 1,000 ML IV SCH (21:45)
[2024-05-16] MEDS ORDERED: SuccINYLCHOLINE Chloride 100 MG/5 ML 5MLSYR IV ONE (22:06)
[2024-05-16] MEDS ORDERED: Rocuronium Bromide 10 MG/ML 5ML Injection IV ONE (22:06)
[2024-05-16] MEDS ORDERED: Phenylephrine HCl 100 MCG/ML-NS 10MLSYR (1MG/10ML) IV ONE (22:06)
[2024-05-16] MEDS ORDERED: ePHEDrine Sulfate 50 MG/ML 1ML Injection XX ONE (22:06)
[2024-05-17] VITALS (16 sets, daily range): BP systolic 79–128; BP diastolic 44–83
[2024-05-17 04:49] LABS: Hematocrit 27.1 % (33.0-51.0); Hemoglobin 9.2 g/dL (11.5-16.0); Mean Corpuscular HGB 30.8 pg (26.0-34.0); Mean Corpuscular HGB Conc 33.9 g/dL (31.5-36.5); Mean Corpuscular Volume 91 fL (80-100); Mean Platelet Volume 10.3 fL (9.1-12.4); Platelet Count 128 K/mm3 (150-400); RDW Coefficient Variation 18.6 % (11.7-14.2); RDW Standard Deviation 60.1 fL (35.1-46.3); Red Blood Cell Count 2.99 M/mm3 (3.80-5.20); White Blood Cell Count 14.74 K/mm3 (4.00-11.30)
[2024-05-17 05:09] LABS: Bun/Creatinine Ratio 31.9 (12.0-20.0); Calcium, Blood 7.1 mg/dL (8.5-10.1); Creatinine, Blood 1.91 mg/dL (0.40-1.00); Potassium, Blood 4.5 mmol/L (3.5-5.5)
--- NOTE | 2024-05-17 06:11 | NUR ---
PT RETURNED AT BEGINNING OF SHIFT FROM EGD WHERE 6 VARICES WERE BANDED. PT ON POST-ANESTHIA VITAL SIGN MONITORING. PT DID HAVE SOFT BP WITH MAPS GREATER THAN 60. NO C/O CP/SOB/LIGHTHEADEDNESS/DIZZINESS. HEART RATE REMAINED WNL, SKIN PINK,WARM,DRY WITH GOOD CAP REFILL. PT REMAINED AOX4. PT IS MADE NPO THIS AM FOR PARACENTESIS LATER. PT REMAINS ON OCTREOTIDE & PROTONIX GTTS. 1/S NS @150ML/HR CONTINUES AT THIS TIME. PT HAS HAD MELENA BM X2 THIS SHIFT. POWER GLIDE IN RUE REMAINS WNL BUT IS POSITIONAL WITH BLOOD DRAWS. PT RECEIVED 1 UNIT OF REGULAR INSULIN THIS AM PER PARAMETERS.
--- NOTE | 2024-05-17 08:22 | NUR ---
PT IS SET TO GET A PARACENTESIS DONE AT 10:30AM. IS STILL NPO UNTIL PROCEDURE.
[2024-05-17] MEDS ORDERED: CefTRIAXone Sodium 1,000 MG in NS 100 ML IV SCH (09:00)
[2024-05-17] MEDS ORDERED: Albumin (Human) 25gm/100ml 100 ML IV SCH ×2 (12:30→12:45)
[2024-05-17 14:37] LABS: Hematocrit 21.5 % (33.0-51.0); Hemoglobin 7.2 g/dL (11.5-16.0)
[2024-05-17] MEDS ORDERED: NS 250 ML IV PRN (16:05)
--- NOTE | 2024-05-17 17:15 | NUR ---
END OF SHIFT SUMMARY: PT A&OX4 AND ACTIVE IN HER CARE. SATTING >92% ON ROOM AIR, ON TELE SHOWING SINUS IN 80'S. HAD A PARACENTESIS DONE TODAY AND THEY TOOK OFF 10.2 LITERS AND WAS GIVEN 3 BAGS OF ALBUMIN AFTER PROCEDURE. 1/2 NS WAS DISCONTINUTED AND IS STILL RUNNING PROTNIX AND SANDOSTATIN. H&H CAME BACK AT 7.2 AND 21.5, CALL PLACED TO AND 2 UNITS OF PRBC'S WERE ORDERED. 1 UNIT OF PRBC'S IS CURRENTLY INFUSING AND PATIENT IS TOLERATING IT WELL. WAS UPDATED, PATIENT HAD ONE EPISODE OF MAROON STOOL PASSED, OK TO START PATIENT ON DIET, IS UPDATED TO CONSISTER CARB SOFT & BITE SIZED. IS ACHS BLOOD SUGAR CHECK. CALLED ABOUT SOFT BLOOD PRESSURE AND WANTED TO MONITOR AT THIS TIME. PER SHE WILL HAVE ANOTHER EGD BEFORE DISCHARGE IN A FEW DAYS AND PATIENT IS AWARE. WILL NOTIFY ONCOMING SWITCHGEAR REPAIRER RN.
[2024-05-17] MEDS ORDERED: Insulin Regular 100 UNIT/ML 10ML Vial SC SCH (17:22)
[2024-05-18 00:16] VITALS: BP 94/48
[2024-05-18 02:06] LABS: Hematocrit 27.6 % (33.0-51.0); Hemoglobin 9.6 g/dL (11.5-16.0); Mean Corpuscular HGB 30.2 pg (26.0-34.0); Mean Corpuscular HGB Conc 34.8 g/dL (31.5-36.5); Mean Corpuscular Volume 87 fL (80-100); Mean Platelet Volume 10.3 fL (9.1-12.4); Platelet Count 81 K/mm3 (150-400); RDW Coefficient Variation 17.5 % (11.7-14.2); RDW Standard Deviation 54.4 fL (35.1-46.3); Red Blood Cell Count 3.18 M/mm3 (3.80-5.20); White Blood Cell Count 7.27 K/mm3 (4.00-11.30)
[2024-05-18 03:31] LABS: Bun/Creatinine Ratio 31.4 (12.0-20.0); Calcium, Blood 7.3 mg/dL (8.5-10.1); Creatinine, Blood 2.23 mg/dL (0.40-1.00)
[2024-05-18 04:23] VITALS: BP 93/81
--- NOTE | 2024-05-18 06:34 | NUR ---
PT TOLERATED 2 UNITS OF PRBCs WELL WITH IMPROVED H&H. PT CONTINUES TO HAVE SOFT BPs, MAP REMAINS GREATER THAN 60. PT SKIN COLOR IMPROVED AFTER TRANSFUSION. PT REMAINS PINK,WARM,DRY. PT HAS HAD MULTIPLE DARK RED LOOSE STOOLS AND HAS BEEN INCONTINENT INTO BRIEF WITH ALL OF THEM. PT ALSO APPEARS TO BE INCONTINENT OF URINE INTO BRIEF WELL. OCTREOTIDE AND PROTONIX INFUSIONS CONTINUE W/O PROBLEM. PT REMAINS AOX4 AND SBA TO 1 ASSIST TO BSC. PT IS ABLE TO DO MOST OF ADLS WITH TOILETING. NO REPORTS OF CP/SOB/DIZZINESS. LT WRIST IV WAS LEAKING BLOOD AROUND INSERTION SITE AND IV REMOVED AND SITE DRESSED WITH GAUZE AND TEGADERM DRESSING, BLEEDING CONTROLLED. NO EPISODE OF HEMATEMESIS OR OTHER SIGNS OF BLEEDING EXCEPT PREVIOUSLY NOTED BMS. IT IS NOTED THAT PT PLATELETS ARE DECREASING AND CREAT/BUN INCREASING THIS WILL BE PASSED ALONG TO NEXT SHIFT.
[2024-05-18 07:51] VITALS: BP 106/62
[2024-05-18] MEDS ORDERED: Albumin (Human) 25gm/100ml 100 ML IV SCH (09:00)
[2024-05-18 09:20] LABS: Automated BF WBC Count 1.126 K/mm3 (0-999)
[2024-05-18 09:28] LABS: Lactate Dehydrogenase, Body Fl 49 U/L
[2024-05-18 09:34] LABS: Protein, Body Fluid 0.7 g/dL
[2024-05-18 09:46] LABS: Albumin, Body Fluid 0.3 g/dL
[2024-05-18 10:26] LABS: Body Fluid WBC Count 1126 /mm3 (0-999)
[2024-05-18 10:28] LABS: RBC Count, Body Fluid 261 /mm3 (0-0)
[2024-05-18 11:42] LABS: Color, Body Fluid Yellow (None-Yellow); Total Cell Count, Body Fluid 100
[2024-05-18 11:43] LABS: Appearance, Body Fluid Hazy (Clear)
[2024-05-18 12:01] VITALS: BP 122/72
[2024-05-18 13:33] LABS: Hematocrit 26.1 % (33.0-51.0); Hemoglobin 9.1 g/dL (11.5-16.0)
[2024-05-18 15:41] VITALS: BP 97/62
--- NOTE | 2024-05-18 16:46 | NUR ---
PHYSICIAN CONTACT PT NOTED TO HAVE 5-6 BM'S SO FAR THIS SHIFT, ALL DARK RED & JELLY-LIKE CONSISTENCY. REPEAT HBG FROM 9.6 TO 9.1. PT CONTINUES TO DENY DIZZINESS/LIGHTHEADEDNESS. CALL PLACED TO MD ABREU. MD ABREU W/ ORDERS FOR REPEAT H&H AT 1700.
[2024-05-18 17:29] LABS: Hematocrit 25.3 % (33.0-51.0); Hemoglobin 8.9 g/dL (11.5-16.0)
--- NOTE | 2024-05-18 17:52 | NUR ---
END OF SHIFT NOTE: PT A/OX4 T/O SHIFT, ABLE TO COMMUNICATE NEEDS W/ STAFF. PLEASANT & COOPERATIVE W/ CARE. VSS. HR 70'S, SINUS RHYTHM ON TELE. SBP 90-120'S, MAP >65. DENIES CHEST PAIN/PRESSURE, DENIES LIGHTHEADEDNESS/DIZZINESS. SPO2 >95% ON RA, RESPIRATIONS EVEN & UNLABORED. SEE PREVIOUS NOTE REGARDING MULTIPLE DARK RED, JELLY-LIKE STOOLS THIS SHIFT. URINE YELLOW. 1P SBA TO BSC. OCTREOTIDE GTT & PROTONIX GTT INFUSING PER EMAR. 100GM ALBUMIN ADMINISTERED THIS SHIFT PER ORDERS. PT TOLERATING PO INTAKE WELL, DENIES N/V. MULTIPLE FAMILY MEMBERS TO BEDSIDE THIS AFTERNOON. NO OTHER NEEDS AT THIS TIME, PT IS EATING DINNER IN BED CONVERSING W/ FAMILY. CALL LIGHT IN REACH.
[2024-05-18 20:21] VITALS: BP 127/76
[2024-05-18] MEDS ORDERED: Sodium Chloride 0.45% 250 ML IV PRN (20:45)
[2024-05-18 23:10] LABS: FACTIN SMOOTH MUSCLE,IGG ELISA 8 Units (0-19); MITOCHONDRIAL (M2) AB,IGG 6.5 Units (0.0-24.9)
[2024-05-19 00:08] VITALS: BP 109/64
[2024-05-19 04:10] VITALS: BP 111/63
[2024-05-19 04:30] LABS: Hematocrit 27.9 % (33.0-51.0); Hemoglobin 9.9 g/dL (11.5-16.0); Mean Corpuscular HGB 30.3 pg (26.0-34.0); Mean Corpuscular HGB Conc 35.5 g/dL (31.5-36.5); Mean Corpuscular Volume 85 fL (80-100); Platelet Count 69 K/mm3 (150-400); RDW Coefficient Variation 18.3 % (11.7-14.2); RDW Standard Deviation 55.6 fL (35.1-46.3); Red Blood Cell Count 3.27 M/mm3 (3.80-5.20); White Blood Cell Count 6.21 K/mm3 (4.00-11.30)
[2024-05-19 04:57] LABS: Albumin, Blood 3.6 g/dL (3.4-5.0); Albumin/Globulin Ratio 2.6 (0.8-1.8); Bilirubin, Total 2.6 mg/dL (0.1-1.0); Bun/Creatinine Ratio 33.3 (12.0-20.0); Calcium, Blood 8.6 mg/dL (8.5-10.1); Creatinine, Blood 2.19 mg/dL (0.40-1.00); Globulin, Blood 1.4 g/dL (2.2-4.0); Potassium, Blood 3.3 mmol/L (3.5-5.5)
[2024-05-19] MEDS ORDERED: Pantoprazole Sodium 20 MG Tab PO SCH (06:00)
--- NOTE | 2024-05-19 06:52 | NUR ---
PT DID HAVE A RHYTHM CHANGED FROM SINUS TO A.FIB AT 0610. PT REPORTS NO CP/SOB. VITAL SIGNS REMAIN STABLE WITH IRREGULAR RHYTHM. PT HAD A VERY LARGE INCONTINENT BM, LOOSE AND BROWN. NO S/S OF BLEEDING. PT ALSO INCONTINENT OF URINE AT THIS TIME WELL. PT CLEANED, FULL LINEN CHANGE DONE. PT DID HAVE A SMALL VOID ON BSC. PT WAS ABLE TO TRANSFER TO BSC WITH 1 ASSIST. B/L POWER GLIDE DRESSINGS CHANGED. PT REMAINS ON OCTREOTIDE INFUSION, PROTONIX GTT D/C'D PER ORDER. PT B/P REMAINED STABLE THROUGHOUT THE NIGHT. PT MILDLY CONFUSED THIS AM BUT DID CLEAR WE WERE CLEANING HER FROM THE INCONTIENT EPISODE.
[2024-05-19 07:26] VITALS: BP 105/70
[2024-05-19 07:44] LABS: IMMUNOGLOBULIN M 59 mg/dL (35-263)
[2024-05-19] MEDS ORDERED: Potassium Chloride 20 MEQ TabCR PO ONE (07:50)
--- NOTE | 2024-05-19 08:15 | NUR ---
I TALKED TO DR. ABREU ABOUT A DECLINE IN THE PT'S MENTATION. SHE IS CONFUSED, SLOW TO RESPOND, AND HER SON WAS AT BEDSIDE AND STATED SHE IS CONFUSED FORM HER BASELINE. HE IS ORIENTED TO HERSELF, KNOWS SHES IN [place], BUT HAD TROUBLE WITH REMEMBERING HER SONS NAME, WHAT TYPE OF BUILDING SHE IS IN, THE DATE, AND WHAT BROUGHT HER INTO THE HOSPITAL. THE PT HAS ANOTHER INC BOWEL MOVEMENT, AND SHE IS CONT AT HER BASELINE. ALSO, DR. ABREU WAS MADE AWARE THAT THE PT CONVERTED FROM SR TO AFIB THIS MORNING WELL. AFTER HE REVIEWED HER CHART HE WANTED TO START WITH A AMMONIA LEVEL.
[2024-05-19] MEDS ORDERED: Lactulose 20 GM/30 ML UDC PO SCH (09:00)
[2024-05-19 11:57] VITALS: BP 95/76
[2024-05-19] MEDS ORDERED: Calcium Carbonate 500 MG Tab Chew PO PRN (13:30)
[2024-05-19] MEDS ORDERED: Ondansetron HCl 2 MG / ML 2ML Vial IV PRN (13:30)
[2024-05-19 14:20] LABS: Hematocrit 32.9 % (33.0-51.0); Hemoglobin 11.6 g/dL (11.5-16.0)
[2024-05-19 15:09] VITALS: BP 115/75
--- NOTE | 2024-05-19 16:38 | NUR ---
MET WITH PATIENT AND FAMILY. HER SON ENOCH WAS THERE ALONG WITH PATIENTS SISTER BASIA AND PATIENTS DAUGHTER JESS. PROVIDER HAD DISCUSSED WITH THE SON SKYLER PROGNOSIS. WE DISCUSSED THE OPTION OF GOING HOME WITH HOSPICE. FAMILY WANTS KYLE TO FINISH THE COURSE OF MEDICATION THAT DR. DODSON HAD RECOMENDED BEFORE SHE GOES HOME. PC WILL CONTINUE TO FOLLOW
--- NOTE | 2024-05-19 17:36 | NUR ---
SHIFT SUMMARY THE PT IS DROWSY AND CONFUSED TODAY. FAMILY HAS BEEN AT BEDSIDE AND SPOKE WITH PALLIATIVE CARE AND BOTH DR. ABREU AND DR. MANN. THE PLAN FOR THE PT IS TO DISCHARGE WITH [facility]. DEPENDING ON THE PT'S CONDITION SHE IS SCHEDULED FOR A POSSIBLE EGD 05/[address] MANN. HE WILL REEVALUATE TOMORROW 05/20. THE PT HAS BEEN INC OF BOWEL AND URINE MAJORITY OF THE DAY. SHE IS A Q2 TURN AND BREIF CHECK. SHE HAS HAD THREE BOWEL MOVEMENTS THAT WERE LOOSE AND BROWN. SOME MAROON NOTED IN THE STOOL. BP STABLE. ON TELE SHE IS AFIB 90'S-100'S. SHE REAMINS ON RA W/ SP02 >90%. SEE NOTES FOR ANY UPDATES.
[2024-05-19 20:02] VITALS: BP 111/61
[2024-05-19] MEDS ORDERED: Insulin Glargine-Yfgn 100 Unit/mL 3 ML SYR SC SCH (21:00)
[2024-05-20] VITALS (14 sets, daily range): BP systolic 107–128; BP diastolic 59–73
[2024-05-20 04:30] LABS: Hematocrit 32.1 % (33.0-51.0); Hemoglobin 11.2 g/dL (11.5-16.0); Mean Corpuscular HGB 29.9 pg (26.0-34.0); Mean Corpuscular HGB Conc 34.9 g/dL (31.5-36.5); Mean Corpuscular Volume 86 fL (80-100); Mean Platelet Volume 9.8 fL (9.1-12.4); Platelet Count 87 K/mm3 (150-400); RDW Coefficient Variation 18.7 % (11.7-14.2); RDW Standard Deviation 56.5 fL (35.1-46.3); Red Blood Cell Count 3.74 M/mm3 (3.80-5.20); White Blood Cell Count 10.17 K/mm3 (4.00-11.30)
[2024-05-20 04:51] LABS: Bun/Creatinine Ratio 32.7 (12.0-20.0); Calcium, Blood 8.5 mg/dL (8.5-10.1); Creatinine, Blood 2.14 mg/dL (0.40-1.00); Potassium, Blood 3.3 mmol/L (3.5-5.5)
--- NOTE | 2024-05-20 05:31 | NUR ---
SHIFT SUMMARY PATIENT ALERT, ORIENTED x2-3. ABLE TO MAKE NEEDS KNOWN. PATIENT HAS BEEN MORE SLEEPY THIS SHIFT BUT WAKES EASILY TO VERBAL STIMULI. BP STABLE. PATIENT CONVERTED FROM AFIB BACK TO SR THIS SHIFT. REMAINS ON RA WITH SPO2 >90%. PATIENT TURNING SELF IN BED INDEPENDENTLY. INCONTINENT OF BLADDER, NO BM THIS SHIFT. ATTENDS IN PLACE. ABDOMEN DISTENDED. OCREOTIDE GTT INFUSING PER EMAR. PATIENT WILL BE NPO AT 1200 FOR EGD ON DAY SHIFT. NO OTHER CHANGES DURING THE NIGHT, WILL REPORT TO DAY SHIFT RN.
[2024-05-20] MEDS ORDERED: Potassium Chloride 20 MEQ TabCR PO ONE (08:30)
[2024-05-20] MEDS ORDERED: Potassium Chloride 20 MEQ/15 ML UDC PO ONE (09:00)
[2024-05-20] MEDS ORDERED: Potassium Chl 20MEQ/Water100ML 100 ML IV SCH (10:20)
[2024-05-20] MEDS ORDERED: Pantoprazole Sodium 40 MG Injection IV SCH ×2 (10:25→11:00)
[2024-05-20] MEDS ORDERED: Lactulose 200 GM/300 ML Enema 300ML BTL PR SCH (11:00)
--- NOTE | 2024-05-20 13:29 | NUR ---
MORNING SUMMARY THE PT IS SLIGHTLY ARROUSABLE TO TOUCH. SHE DOES NOT STAY AWAKE ENOUGH FOR A CONVERSATION. THE PT WAS ABLE TO SAY HER NAME, BUT RESPONDED TO EVERYOTHER QUESTION WITH HER NAME WELL. FAMILY WAS AT BEDSIDE AND TRIED TO STIMULATE THE PT WELL. DR. ABREU WAS NOTIFIED OF CONTINUED DECLINE IN MENTATION. THE PT'S ORAL MEDS WERE CHANGED TO IV, AND WE STARTED HER ON [place] ENULOSE. AMMONIA LEVEL CAME BACK ELEVATED FROM YESTERDAY. 43 TO 177. EDUCATION HAS BEEN PROVIDED TO THE FAMILY. ON THE THE PT IS SR 80'S, SP02 >93% ON RA, AND HER BP HAS BEEN STABLE. SOME BLANCHABLE REDNESS WAS NOTED ON THE PT'S HEELS. HER HEELS ARE FLOATED AND CARE PLAN DISCUSSED WITH STAFF TO PREVENT PRESSURE SORES. THE PT REMAINS NPO D/T MENTATION AND FOR A POSSIBLE EGD THIS AFTERNOON. WE ARE WAITING FOR DR. MANN TO REEVALUATE THE PT. SEE NOTES FOR UPDATES.
[2024-05-20] MEDS ORDERED: NS 250 ML IV PRN (14:25)
[2024-05-20] MEDS ORDERED: NS 1,000 ML IV SCH (15:50)
[2024-05-20] MEDS ORDERED: Albumin (Human) 25gm/100ml 100 ML IV SCH (15:50)
[2024-05-20] MEDS ORDERED: NS 500 ML IV SCH (16:00)
[2024-05-20] MEDS ORDERED: propofoL 0 ML IV ONE (16:39)
[2024-05-20] MEDS ORDERED: propofoL 20 ML IV ONE (16:40)
--- NOTE | 2024-05-20 16:51 | NUR ---
05/20/24 1651 Nellie Sargent 0693 INTO ENDO 1 . History, Chart, Medications and Allergies reviewed before start of procedure.MONITOR INTACT WITH CONTINUOUS PULSE OXIMETRY, CONTINUOUS END TITAL CO2, AND INTERMITTENT BLOOD PRESSURE. 3-LEAD EKG REVIEWED WITH PHYSICIAN PRIOR TO START OF PROCEDURE.Bite Block Placed. PROVIDING MAC-SE ANESTHESIA RECORD.
--- NOTE | 2024-05-20 18:26 | NUR ---
SHIFT SUMMARY THE PT REMAINS SOMULANT BUT ARROUSABLE TO PHYSICAL STIMULI. SHE DOES NOT STAY AWAKE. SHE IS NPO D/T MENTATION. SHE IS RECIEVING ENULOSE TX Q6. THE PT RECIEVED HER FIRST DOSE THIS AFTERNOON AND HAS NOT HAD MUCH OUTPUT OUT. SHE HAD A DIAGNOSTIC EGD THIS AFTERNOON W/ DR. MANN. NO INTERVENTIONS DONE. FAMILY HAS BEEN AT BEDSIDE AND HAS BEEN UPDATED ON CARE. SEE NOTES FOR UPDATES.
--- NOTE | 2024-05-20 18:58 | NUR ---
WHEN GIVING 1800 DOSE OF LACTULOSE THE PT ONLY TOLERATED 750CC'S OF THE MEDICATION AND WATER SOLUTION. SHE HAS A RECTAL TUBE PLACE AND IT IS CLAMPED TO HOLD THE MEDICATION IN FOR THIRTY MINUTES. FAMILY WAS EDUCATED ON THIS. SEE NOTES FOR UPDATES.
[2024-05-21] VITALS (8 sets, daily range): BP systolic 48–106; BP diastolic 34–80
[2024-05-21 04:37] LABS: Hematocrit 30.3 % (33.0-51.0); Hemoglobin 10.2 g/dL (11.5-16.0); Mean Corpuscular HGB 30.1 pg (26.0-34.0); Mean Corpuscular HGB Conc 33.7 g/dL (31.5-36.5); Mean Corpuscular Volume 89 fL (80-100); Mean Platelet Volume 10.3 fL (9.1-12.4); NRBC ABSOLUTE 0.04 K/mm3 (0.00-0.02); NRBC Auto 0.2 /100 WBC (0.0-0.2); Platelet Count 117 K/mm3 (150-400); RDW Coefficient Variation 19.5 % (11.7-14.2); RDW Standard Deviation 59.9 fL (35.1-46.3); Red Blood Cell Count 3.39 M/mm3 (3.80-5.20); White Blood Cell Count 16.04 K/mm3 (4.00-11.30)
--- NOTE | 2024-05-21 05:10 | NUR ---
UPDATE PATIENT BECOMING MORE RESTLESS AROUND 0400. PATIENT SITTING UP AT SIDE OF BED TWO TIMES SINCE 0400 BUT CANNOT COMMUNICATE WHY SHE IS SITTING UP. PATIENT HAS BEEN SOMNULENT FOR MAJORITY OF SHIFT. AT 0440, THIS RN AND ANOTHER RN IN ROOM PATIENT WAS SAT UP AT EDGE OF BED. PATIENT WAS ASSISTED BACK INTO BED. RECTAL TUBE HAS BEEN IN PLACE WITH BROWN STOOLS OUT FOR MAJORITY OF SHIFT. THIS RN AND ANOTHER RN MOVED PATIENT BACK INTO BED AND NOTICED ELIZABETH RED BLOOD DRAINING INTO RECTAL TUBE. VITALS TAKEN, SIGNIFICANT DROP IN BLOOD PRESSURE NOTED. ALL OTHER VITALS REMAIN STABLE. NEW BAG PLACED FOR ACCURATE MEASUREMENT OF ELIZABETH RED BLOOD. NEW RECTAL TUBE PLACED WELL. AROUND 200mls OF BLOOD DRAINED INTO RECTAL TUBE BAG FOR ABOUT 5 MINUTES. ZIGZAG ELASTIC ATTACHER CALLED TO BEDSIDE AND UPDATED. ZIGZAG ELASTIC ATTACHER CALLED DR. MANN WITH UPDATE. ORDERS RECEIVED FOR TRANSFER TO ICU AND TO ADMINISTER BLOOD.
[2024-05-21 05:13] LABS: Calcium, Blood 8.8 mg/dL (8.5-10.1); Magnesium, Blood 1.9 mg/dL (1.6-2.4); Potassium, Blood 3.6 mmol/L (3.5-5.5)
[2024-05-21] MEDS ORDERED: NS 1,000 ML IV ONE (06:30)
--- NOTE | 2024-05-21 07:28 | NUR ---
PT TRANSFERS FROM PCU TO ICU 16 AT 0525 THIS AM. PT NOTED TO BE CONFUSED. TRIES TO GET OUT OF BED WITHOUT PURPOSE. PT HAS FLEXISEAL IN PLACE. ELIZABETH BLOOD NOTED IN TUBING. PT ALSO COUGHING UP ELIZABETH BLOOD. DR MANN COMES TO ROOM. ORDERS HAVE BEEN RECEIVED. PT DNR/DNI. AFTER DISCUSSION WITH FAMILY BY DR MANN, THEY HAVE DECIDED TO NOT TREAT PT AGGRESSIVELY. ACKNOWLEDGES THAT PT'S CONDITION IN CONTINUING TO DETERIORATE RAPIDLY. DR MANN STATES TO NOT GIVE THE ORDERED PRBC'S. PT DESATURATION EARLY IN TRANSFER, 3 LITERS PLACED PER NASAL CANNULA. PT'S BLOOD PRESSURES HAVE BECOME MORE HYPOTENSIVE. FAMILY HAS COME TO BEDSIDE. FAMILY VERY ATTENTIVE TO PT'S NEEDS. HAVE ASKED MANY QUESTIONS OF EXPECTATIONS IN PT'S STATUS, AND HER POTENTIAL FOR PASSING AWAY THIS MORNING. HAVE GIVEN BEDSIDE REPORT TO PEPE OLIVEROS.
--- NOTE | 2024-05-21 07:39 | NUR ---
BEDSIDE SHIFT REPORT WITH GUILLAUME AND FAMILY AT BEDSIDE, PT MINIMALLY RESPONSIVE. FAMILY HAS ASKED NOT TO ESCALATE CARE AT THIS TIME. CALLED BACK TO ROOM AT 729, PT WITH BLEEDING COMING FROM HER MOUTH, AGONAL RESPIRATIONS, LISTENED TO HEART TONES, NOT AUDIBLE. PT PASSED [phone]. CONFIRMED WITH HELEN Schrader RN
--- NOTE | 2024-05-21 08:39 | NUR ---
FAMILY HAS LEFT AND WILL PHONE WITH HOME PREFERENCES. LICENSED ESTHETICIAN ARRIVED FAMILY WAS LEAVING. WAS IN WITH FAMILY JUST BEFORE 0800.
== END 2024-05-21 13:01 | DRG 432 ==
LOC: ER 09:19 → ERHOLD 10:56 → ICUE 10:56 → PCU 10:56 → ICUE 05-21 05:34
PROVIDERS: Internal Medicine Gastroenterology; Student in an Organized Health Care Education/Training Program; ADMIT Internal Medicine
PROC: 06L38CZ Occlusion of Esophageal Vein with Extraluminal Device, Via Natural or Artificial Opening Endoscopic (ICD-10-PCS; 2024-05-16)
PROC: 3E03329 Introduction of Other Anti-infective into Peripheral Vein, Percutaneous Approach (ICD-10-PCS; principal; 2024-05-16 19:00)
PROC: 0W9G3ZZ Drainage of Peritoneal Cavity, Percutaneous Approach (ICD-10-PCS; 2024-05-17)
PROC: 0DJ08ZZ Inspection of Upper Intestinal Tract, Via Natural or Artificial Opening Endoscopic (ICD-10-PCS; 2024-05-20)
DX: K74.60 Unspecified cirrhosis of liver (principal); I85.11 Secondary esophageal varices with bleeding; K65.2 Spontaneous bacterial peritonitis; K22.11 Ulcer of esophagus with bleeding; K76.6 Portal hypertension; R18.8 Other ascites; Z66 Do not resuscitate; Z51.5 Encounter for palliative care; N17.9 Acute kidney failure, unspecified; E87.20 Acidosis, unspecified; E78.5 Hyperlipidemia, unspecified; E11.22 Type 2 diabetes mellitus with diabetic chronic kidney disease; I12.9 Hypertensive chronic kidney disease with stage 1 through stage 4 chronic kidney disease, or unspecified chronic kidney disease; E11.40 Type 2 diabetes mellitus with diabetic neuropathy, unspecified; E11.319 Type 2 diabetes mellitus with unspecified diabetic retinopathy without macular edema; E66.9 Obesity, unspecified; G47.33 Obstructive sleep apnea (adult) (pediatric); N18.31 Chronic kidney disease, stage 3a; M81.0 Age-related osteoporosis without current pathological fracture; H90.3 Sensorineural hearing loss, bilateral; G47.61 Periodic limb movement disorder; M19.049 Primary osteoarthritis, unspecified hand; R47.81 Slurred speech; K76.82 Hepatic encephalopathy; I48.91 Unspecified atrial fibrillation; G89.4 Chronic pain syndrome; K75.81 Nonalcoholic steatohepatitis (NASH); R54 Age-related physical debility; R19.7 Diarrhea, unspecified; Z68.28 Body mass index [BMI] 28.0-28.9, adult; R57.8 Other shock; Z79.899 Other long term (current) drug therapy; Z96.651 Presence of right artificial knee joint; Z98.51 Tubal ligation status; Z98.890 Other specified postprocedural states; Z98.42 Cataract extraction status, left eye; Z98.41 Cataract extraction status, right eye; Z79.83 Long term (current) use of bisphosphonates; Z86.0101 Personal history of adenomatous and serrated colon polyps; Z86.16 Personal history of COVID-19; Z85.828 Personal history of other malignant neoplasm of skin; Z80.0 Family history of malignant neoplasm of digestive organs; Z83.3 Family history of diabetes mellitus; Z79.4 Long term (current) use of insulin
CPT/HCPCS: 36415; 36430; 49083; 71045; 80047; 80048; 80053; 82042; 82105; 82140; 82784; 82947; 83615; 83735; 84157; 85014; 85018; 85025; 85027; 85610; 85730; 86015; 86381; 86850; 86900; 86901; 86923; 87070; 87205; 88108; 88305; 88312; 89051; 93005; 93010; 94762; 96374; 96375; 99285-25; A9270; C1751; J0330; J0696; J1815; J2354; J2371; J2405; J2470; J2704; J2765; J3480; J7030; J7050; J7120; P9016; P9047